=== PATIENT | female | born 1950 | race Caucasian/White ===

== ENCOUNTER 2021-01-22 09:59 | Emergency (ER) | payer MEDICARE, OTHER, SELFPAY ==
[2021-01-22] VITALS (31 sets, daily range): BP systolic 128–149; BP diastolic 55–112; PULSE 64–79; RESP 12–25; TEMP 36.7; O2SAT 93–99
--- NOTE | ~2021-01-22 | CT_ITS ---
EXAMINATION: CTA chest PE protocol DATE: 01/22/2021 11:40 INDICATION: Dizziness and weakness, elevated d-dimer TECHNIQUE: Computed tomography angiography (CTA) of the chest was performed with 100 mL Omnipaque-350 intravenous contrast timed to evaluate the pulmonary arteries. Coronal maximum intensity projection 3D-reconstructions were created by the technologist. The dose-length product (DLP) was 374.19 mGy-cm. Automated exposure control and iterative reconstruction technique were employed. COMPARISON: None. FINDINGS: The pulmonary arteries are well-opacified. No pulmonary embolism is identified. There is mo derate emphysema. Mild dependent atelectasis is noted. There is mild dependent atelectasis. The lungs are free of focal airspace opacities. There is no pleural effusion or pneumothorax. No pathologicall y enlarged thoracic lymph nodes are identified. The heart size is normal. The gallbladder is surgical ly absent. There is a 2 cm low-density mass of the left adrenal gland, consistent with an adenoma. A 1.3 cm cyst is noted in the spleen. There is an age-indeterminate compression fracture of T12. IMPRESSION: 1. No pulmonary embolism or acute cardiopulmonary abnormality. 2. Age-indeterminate T12 compression fracture. Reviewed, dictated and finalized at location A.
--- NOTE | ~2021-01-22 | XR_ITS ---
EXAMINATION: XR chest 1V portable INDICATION: Dizziness and weakness TECHNIQUE: Portable AP chest at 1014 hours COMPARISON: None available FINDINGS: The lungs are free of acute opacities. There is no pleural effusion or pneumothorax. The ca rdiomediastinal silhouette is normal. There is osteoarthritis of the shoulders. IMPRESSION: 1. No acute cardiopulmonary abnormality. Reviewed, dictated and finalized at location A.
--- NOTE | 2021-01-22 10:00 | ECG_ITS ---
Measurements Intervals [place] Rate: 65 P: 56 MO: 159 QRS: 48 QRSD: 109 T: 51 QT: 431 QTc: 451 Interpretive Statements SINUS RHYTHM BASELINE ARTIFACT- V1 NORMAL ECG Electronically Signed On 01-22-2021 21:39:09 CDT by Jaya Wilder D.O.
[2021-01-22] MEDS: SODIUM CHLORIDE 0.9% IV 1,000 ML 999 ML IV CONT (10:21)
[2021-01-22 10:56] LABS: Basophils Percent Auto 0.4 % (0.2-1.2); Eosinophils Absolute Auto 0.1 K/mm3 (0-0.3); Eosinophils Percent Auto 1.9 % (0-4.4); Hematocrit 43.3 % (37.0-47.0); Hemoglobin 13.7 g/dL (12.0-15.0); Immature Granulocyte Absolute 0.09 K/mm3 (0.00-0.031); Immature Granulocyte Percent A 1.2 % (0-0.5); Lymphocytes Absolute Auto 0.81 K/mm3 (0.9-3.2); Lymphocytes Percent Auto 11.1 % (18.3-44.2); Mean Corpuscular HGB Conc 31.6 g/dl (32-36); Mean Corpuscular Hemoglobin 29.8 pg (26-34); Mean Corpuscular Volume 94.1 fl (80-100); Mean Platelet Volume 10.1 fl (7.4-10.4); Monocytes Absolute Auto 0.5 K/mm3 (0.1-0.6); Monocytes Percent Auto 6.3 % (2.6-8.5); Neutrophils Absolute Auto 5.8 K/mm3 (1.3-6.7); Neutrophils Percent Auto 79.1 % (45.5-73.1); Platelet Count Result 188 k/mm3 (150-375); Red Cell Distribution Width 13.6 % (11.5-14.5); White Blood Count 7.3 K/mm3 (4.5-10.0)
[2021-01-22 11:10] LABS: INR 0.9
[2021-01-22 11:11] LABS: Alanine Aminotransferase 14 U/L (4-35); Albumin Level 4.7 g/dL (3.5-5.1); Alkaline Phosphatase 68 U/L (38-126); Anion Gap 8 mmol/L (8-16); Aspartate Amino Transferase 29 U/L (14-36); Bilirubin,Total 0.9 mg/dL (0.2-1.3); Blood Urea Nitrogen 13 mg/dL (7-17); Calcium 9.7 mg/dL (8.4-10.2); Carbon Dioxide 26 mmol/L (22-30); Chloride 106 mmol/L (98-107); Estimated CRCL calculation 64 ml/min; Estimated Glomerular Filt Rate > 60; Glucose 131 mg/dL (65-105); Potassium 4.2 mmol/L (3.4-5.0); Sodium 140 mmol/L (137-145)
[2021-01-22 11:13] LABS: D Dimer 0.95 ug/mL (<0.48)
[2021-01-22 11:15] LABS: Add Urine Microscopic? YES; Appearance Urine Clear (Clear); Bilirubin Urine Negative (Negative); Blood Urine Negative (Negative); Color Urine Yellow (Yellow); Glucose Urine UA Negative (Negative); Ketones Urine Trace mg/dL (Negative); Leukocyte Esterase Ur Negative LEU/UL (Negative); Mucus Urine Rare /lpf; Nitrate Urine Negative (Negative); Protein Urine Negative (Negative); RBC Urine 0-2 /hpf (0-2); Squamous Epithelial Cell Urine Rare /hpf (Few); Urobilinogen Urine Negative mg/dL (<2.0); WBC Urine 0-3 /hpf
[2021-01-22 11:22] LABS: NT Pro B Type Natriuretic Pept 135 pg/mL (5-100); Troponin I < 0.012 ng/mL (0.000-0.034)
--- NOTE | 2021-01-22 12:38 | ED.GENADULT ---
HPI - General Adult General Chief complaint: Dizziness Stated complaint: dizziness/nausea Time Seen by Provider: 01/22/21 10:06 Source: patient, EMS and RN notes reviewed Mode of arrival: EMS Limitations: no limitations History of Present Illness HPI narrative: Patient is a 70-year-old female who presents to emergency department for evaluation of dizziness that occurred while working in the [facility] patient began to feel dizzy had some blurred vision at that time went inside tried to rest symptoms persisted and then presented to emergency department for evaluation patient notes she has had similar occurrences on a few episodes since May patient on arrival to emergency department resting in the room comfortably no distress denying any recent illness notes yesterday she had felt fine Related Data Allergies Allergy/AdvReac Type Severity Reaction Status Date / Time Sulfa (Sulfonamide Allergy Mild Verified 11/03/08 14:23 Antibiotics) Review of Systems Review of Systems: All systems reviewed & are unremarkable except as noted in HPI and below PMFSH Past Medical History Medical History Hypertension Surgical History Surgical History Hx of cholecystectomy Social History Social History (Updated 01/22/21 @ 12:41 by Yogi Madera PA-C) Smoking status: Former smoker Exam Narrative: Exam Narrative: GENERAL: Well-appearing, well-nourished, and in no acute distress. HEAD: Normocephalic, atraumatic. EYES: PERRLA and EOMI. ENT: Nares clear, no rhinorrhea or epistaxis. Mucous membranes moist. Oropharynx without tonsillar hypertrophy exudate or other lesions. Bilateral TMs pearly salmon nonbulging NECK: Supple. No adenopathy or masses. No carotid bruits or JVD CHEST: Clear to auscultation. No respiratory distress. No wheezes rales or rhonchi HEART: Regular rate and rhythm. No murmur heard. Normal peripheral pulses. ABDOMEN: Soft, nontender, nondistended EXTREMITIES: Normal range of motion. No edema. SKIN: Warm, dry, no rash. NEURO: No focal deficits. Alert and oriented x3. Cranial nerves II through XII grossly intact PSYCH: Normal mood and affect. Course Course Emergency Course: Patient presented for dizziness which has been ongoing since May patient has had multiple episodes will be referred back to primary care for further evaluation of her dizziness patient at this time denies any symptoms resting comfortably in the room in no distress ABCs and vital signs intact and stable patient made aware of case findings treatment plan and diagnosis and agrees with this plan Vital Signs Vital signs: Vital Signs Temperature 98.0 F 01/22/21 09:57 Pulse Rate 69 01/22/21 09:57 Respiratory Rate 14 01/22/21 09:57 Pulse Oximetry 98 01/22/21 09:57 Temperature 98.0 F 01/22/21 09:57 Pulse Rate 69 01/22/21 11:08 Respiratory Rate 17 01/22/21 11:08 Blood Pressure 138/87 01/22/21 11:08 Pulse Oximetry 99 01/22/21 11:08 Medical Decision Making MDM Narrative Medical decision making narrative: Patient's dizziness has resolved there are o focal neurological deficits on exam. Subarachnoid hemorrhage is felt to be unlikey at this time. There is no history of fever, and neck is supple without meningismus, making meningitis unlikely. No traumatic history or signs of trauma on exam. No risk factors for CVA, risk factors reviewed. NO ocular signs on exam and in history to suggest acute glaucoma. Patients EKGs and labs are without significant high risk changes. Cardiac risk factors were reviewed. Patient is felt likely to be low risk for ACS and reasonable for further risk stratification testing as an outpatient. Pain was not sudden or maximal in onset without tearing or ripping. quality. No other signs or symptoms to suggest aortic dissection. A low-risk Wells criteria is noted. PE is fe
[2021-01-22 13:23] LABS: Troponin I < 0.012 ng/mL (0.000-0.034)
== END 2021-01-22 13:52 | disposition home or self-care (01) ==
PROVIDERS: Emergency Medicine Emergency Medical Services; Emergency Provider Emergency Medicine
DX: R42 Dizziness and giddiness (principal); I10 Essential (primary) hypertension
CPT/HCPCS: 36415; 71045; 71275; 80053; 81001; 83880; 84484; 85025; 85380; 85610; 85730; 93005; 96360; 99284; J7030; Q9967

== ENCOUNTER 2022-03-19 14:40 | Emergency (ER) | payer MEDICARE, OTHER, SELFPAY ==
[2022-03-19] VITALS (7 sets, daily range): BP systolic 117–129; BP diastolic 61–75; PULSE 82–99; RESP 18–20; TEMP 36.8; O2SAT 93–100
--- NOTE | ~2022-03-19 | XR_ITS ---
EXAMINATION: XR chest 1V portable Exam Date/Time: 03/19/2022 17:28 CDT HISTORY: Shortness of breath; cough, hx of HTN Comparison: 01/22/2021. RESULT: Lines, tubes, and devices: None. Lungs and pleura: Senescent change, otherwise clear. Cardiomediastinal silhouette: Stable. Other: No acute osseous or upper abdominal finding. IMPRESSION: No acute cardiopulmonary process. Reviewed, dictated and finalized at location K.
--- NOTE | 2022-03-19 15:34 | ED.URI ---
HPI - URI/Sore Throat General Chief Complaint: Upper Respiratory Infection Stated Complaint: oxygen levels low - URI - negative covid Time Seen by Provider: 03/19/22 15:34 Source: patient and RN notes reviewed Mode of arrival: ambulatory Limitations: no limitations History of Present Illness HPI Narrative: 71 years old white female referred to our emergency room by urgent care because of cold-like symptoms. Patient reported having sore throat 1 week ago lasted for 3 days, went to urgent care at that time and had negative COVID test and strep test. 6 days ago patient started having productive cough of clear sputum, runny nose, postnasal discharge, hoarseness of voice. Patient started on Mucinex and Robitussin-DM, gargle salt warm water, no improvement. Patient went to see urgent care again today then got referred to the emergency room for further evaluation. Related Data Allergies Allergy/AdvReac Type Severity Reaction Status Date / Time Sulfa (Sulfonamide Allergy Mild Unknown Verified 03/19/22 15:12 Antibiotics) Review of Systems Review of Systems: All systems reviewed & are unremarkable except as noted in HPI and below PMFSH Past Medical History Medical History Hypertension Surgical History Surgical History Hx of cholecystectomy Social History Social History Smoking status: Former smoker Exam Narrative: General appearance: Well-developed, well-nourished, hoarseness of voice Skin: Normal color Head: Normocephalic, nontraumatic Eyes: Clear conjunctiva ENT: Oropharynx normal, ears normal, nose normal Neck: Supple, nontender Chest and respiratory: Airway patent, no respiratory distress, no accessory muscle use few scattered wheezing and rhonchi bilaterally Heart: Regular rate/rhythm Abdomen: Soft, nontender, no organomegaly, quiet bowel sounds Vascular: Normal peripheral pulses, normal capillary refill. Musculoskeletal: Normal range of motion, nontender back Neurologic: Alert and oriented ?3, DISTRESSER is normal as tested, no gross motor deficit Course Vital Signs Vital signs: Vital Signs Temperature 36.8 C 03/19/22 14:58 Pulse Rate 88 03/19/22 14:58 Respiratory Rate 20 03/19/22 14:58 Blood Pressure 117/61 03/19/22 14:58 Pulse Oximetry 93 03/19/22 14:58 Oxygen Delivery Room Air 03/19/22 14:58 Temperature 36.8 C 03/19/22 14:58 Pulse Rate 96 03/19/22 16:00 Respiratory Rate 20 03/19/22 16:00 Blood Pressure 121/61 03/19/22 16:00 Pulse Oximetry 95 03/19/22 16:00 Oxygen Delivery Room Air 03/19/22 15:08 MDM - URI/Sore Throat Lab Data Result diagrams: 03/19/22 15:59 03/19/22 15:58 Labs: Lab Results 03/19/22 03/19/22 03/19/22 Range/Units 15:58 15:59 16:10 WBC 9.7 (4.5-10.0) K/mm3 RBC 4.18 L (4.2-5.4) M/mm3 Hgb 12.7 (12.0-15.0) g/dL Hct 38.7 (37.0-47.0) % MCV 92.6 (80-100) fl MCH 30.4 (26-34) pg MCHC 32.8 (32-36) g/dl RDW 12.8 (11.5-14.5) % Plt Count 191 (150-375) k/mm3 MPV 9.7 (7.4-10.4) fl Immature Gran % (Auto) 1.3 H (0-0.5) % Neut % (Auto) 75.2 H (45.5-73.1) % Lymph % (Auto) 10.2 L (18.3-44.2) % [place] % (Auto) 12.0 H (2.6-8.5) % Eos % (Auto) 0.8 (0-4.4) % Baso % (Auto) 0.5 (0.2-1.2) % Lymph # (Auto) 0.99 (0.9-3.2) K/mm3 [place] # (Auto) 1.2 H (0.1-0.6) K/mm3 Eos # (Auto) 0.1 (0-0.3) K/mm3 Baso # (Auto) 0.1 (0.0-0.1) K/mm3 Abs Immat Gran (auto) 0.13 H (0.00-0.031) K/mm3 Absolute Neuts (auto)
[2022-03-19 15:52] LABS: Alveolar/Arterial O2 Gradient 40.5 mmHg; Base Excess ABG 2.1 mEq/l (+/-2.0); Fractional Inspired Oxygen 21 %; HCO3 ABG 26.8 mEq/l (22.0-26.0); Oxygen Content ABG 16.1 %vol (16.0-22.0); Oxygen Saturation ABG 90.9 % (95.0-100.0); PCO2 ABG 42.3 mmHg (35.0-45.0); PO2 ABG 58.6 mmHg (80.0-100.0); PO2 FiO2 Ratio Arterial Blood 2.79 %; Total Hemoglobin 12.9 g/dL (12.0-18.0)
[2022-03-19 15:53] LABS: Device ROOM AIR; Modified Allen's Test Pass; Site Drawn RIGHT RADIAL
[2022-03-19 16:06] LABS: Basophils Absolute Auto 0.1 K/mm3 (0.0-0.1); Basophils Percent Auto 0.5 % (0.2-1.2); Eosinophils Absolute Auto 0.1 K/mm3 (0-0.3); Eosinophils Percent Auto 0.8 % (0-4.4); Hematocrit 38.7 % (37.0-47.0); Hemoglobin 12.7 g/dL (12.0-15.0); Immature Granulocyte Absolute 0.13 K/mm3 (0.00-0.031); Immature Granulocyte Percent A 1.3 % (0-0.5); Lymphocytes Absolute Auto 0.99 K/mm3 (0.9-3.2); Lymphocytes Percent Auto 10.2 % (18.3-44.2); Mean Corpuscular HGB Conc 32.8 g/dl (32-36); Mean Corpuscular Hemoglobin 30.4 pg (26-34); Mean Corpuscular Volume 92.6 fl (80-100); Mean Platelet Volume 9.7 fl (7.4-10.4); Monocytes Absolute Auto 1.2 K/mm3 (0.1-0.6); Neutrophils Absolute Auto 7.3 K/mm3 (1.3-6.7); Neutrophils Percent Auto 75.2 % (45.5-73.1); Platelet Count Result 191 k/mm3 (150-375); Red Blood Count 4.18 M/mm3 (4.2-5.4); Red Cell Distribution Width 12.8 % (11.5-14.5); White Blood Count 9.7 K/mm3 (4.5-10.0)
[2022-03-19 16:12] LABS: Alanine Aminotransferase 13 U/L (6-35); Albumin Level 4.3 g/dL (3.5-5.1); Alkaline Phosphatase 57 U/L (38-126); Anion Gap 4 mmol/L (8-16); Aspartate Amino Transferase 23 U/L (14-36); Bilirubin,Total 0.5 mg/dL (0.2-1.3); Blood Urea Nitrogen 11 mg/dL (7-17); Calcium 9.3 mg/dL (8.4-10.2); Carbon Dioxide 29 mmol/L (22-30); Chloride 100 mmol/L (98-107); Estimated CRCL calculation 56 ml/min; Estimated Glomerular Filt Rate > 60; Glucose 143 mg/dL (65-110); Potassium 3.8 mmol/L (3.4-5.0); Sodium 133 mmol/L (137-145)
[2022-03-19 17:03] LABS: Influenza A QL RT-PCR Negative (Negative); Influenza B QL RT-PCR Negative (Negative); SARS-CoV-2 RNA PCR Negative
[2022-03-19] MEDS: predniSONE 20 MG TABLET 60 MG PO (18:12)
[2022-03-19] MEDS: IPRATROPIUM BR 0.02% INH SOLN 0.5 MG/2.5 ML VIAL INHALATION (18:19)
[2022-03-19] MEDS: ALBUTEROL SULFATE NEB 2.5 MG/3 ML INH 5 MG INHALATION ×2 (18:19→18:32)
== END 2022-03-19 19:46 | disposition home or self-care (01) ==
PROVIDERS: Emergency Provider Emergency Medicine
DX: J06.9 Acute upper respiratory infection, unspecified (principal); B34.9 Viral infection, unspecified; I10 Essential (primary) hypertension; Z20.822 Contact with and (suspected) exposure to COVID-19
CPT/HCPCS: 36415; 36600; 71045; 80053; 82805; 85025; 87502; 94640; 99283; C9803; J7512; U0003; U0005

== ENCOUNTER 2022-07-20 10:02 | Outpatient (CLI) | payer MEDICARE, OTHER, SELFPAY ==
--- NOTE | 2022-07-20 13:09 | WPDPFTINT ---
PFT Procedure Performed PFT Procedure Performed Spirometry with Pre/Post Bronchodilator Plethysmography (Lung Vol) Diffusing Cap (DLCO) Flow Vol Loop PFT Interpretation Lung volumes were measured with the body plethysmography method. Lung volumes are unremarkable. Spirometry showed normal FVC, normal FEV1, borderline normal mid expiratory flow rates but mild reduction in the FEV1 to FVC ratio at 67%. Following administration of a bronchodilator there was no significant increase in expiratory flow rates. Lung diffusion capacity is moderately reduced at 59% predicted. The flow volume loop is consistent with mild obstructive airway disease. Impression: Probable mild obstructive airway disease with no response to bronchodilators on this testing.
--- NOTE | 2022-07-20 13:16 | WPDSIXMINUTE ---
Six Minute Walk Procedure Procedure Performed Pulmonary Stress Test (6 min walk) Six Minute Walk Six Minute Walk: This 6 minute walk test was carried out with the patient breathing ambient air. The pre-walk oxyhemoglobin saturation was 98%. The patient walked over 396 m with no stops during testing. During the walk, oxyhemoglobin saturation remained in the range of 92% to 98%. Impression: No evidence of oxyhemoglobin desaturation on this testing.
== END 2022-07-20 10:03 | disposition home or self-care (01) ==
LOC: ANHPFT 10:03
PROVIDERS: Visit Provider Internal Medicine Pulmonary Disease
DX: J44.9 Chronic obstructive pulmonary disease, unspecified (principal); Z87.891 Personal history of nicotine dependence; R94.2 Abnormal results of pulmonary function studies
CPT/HCPCS: 94060; 94618; 94726; 94729

== ENCOUNTER 2022-09-19 10:23 | Emergency (ER) | payer MEDICARE, OTHER, SELFPAY ==
--- NOTE | 2022-09-19 10:25 | ED.WOUNDLAC ---
HPI - Wound/Laceration General Chief Complaint: Wound/Laceration Stated Complaint: Right Hand Finger Laceration Time Seen by Provider: 09/19/22 10:25 Source: patient Mode of arrival: ambulatory Limitations: no limitations History of Present Illness HPI narrative: Octavia is a 72 year female patient presenting to the clinic today with complaints of a right hand finger laceration. She reports she cut her finger this morning when trying to clean out a can. Has a 1 cm cut to the dorsal aspect of the right 4th finger. Is able to bend her finger however when she does been her finger the wound bleeds more Related Data Home Medications Medication Instructions Recorded Confirmed amlodipine 5 mg tablet 5 mg PO DAILY 07/04/22 09/19/22 lisinopril 30 mg tablet 30 mg PO DAILY 07/04/22 09/19/22 vit 1 tablet PO DAILY 07/04/22 09/19/22 [id number] 500 mg-50 mg-25 mg-40 mg tablet (Bioflex) Allergies Allergy/AdvReac Type Severity Reaction Status Date / Time Sulfa (Sulfonamide Allergy Mild Unknown Verified 09/19/22 10:26 Antibiotics) Review of Systems Review of Systems: Pertinent positives per HPI. Patient denies any fever, chills, rash, headache, visual changes, dizziness, cough, runny nose, sore throat, shortness of breath, chest pain, palpitations, nausea, vomiting, diarrhea, constipation, abdominal pain, or any urinary issues. PMFSH Past Medical History Medical History Hypertension Surgical History Surgical History Hx of cholecystectomy Social History Social History Smoking status: Former smoker Comments At the time of my signature, I reviewed and agree with the nursing past medical, surgical, social, and family history. There is no relevant family history pertinent to the patient complaint. Exam Narrative: General: Well-developed, well nourished, in no apparent distress Head: Normocephalic, atraumatic. Cardio: Regular rate and rhythm, s1 and s2 normal, no murmur appreciated. Resp: Clear to auscultation bilaterally, no rhonchi, rales, wheezing or rubs. Integumentary: [place], warm, and dry, 1 cm mildly gaping laceration to the right 4th dorsal finger -horizontal laceration over the knuckle Course Course Emergency Course: Portions of this record may have been created with voice recognition software. Level of Care: Express Care Visit Vital Signs Vital signs: Vital signs reviewed Procedures Laceration Laceration 1: Date: 09/19/22 Site: hand (Right 4th finger) Side (If applicable): right Size (cm): 1 Description: linear Depth: simple, single layer Local Anesthetic: lidocaine 1% Amount of anesthesia used (mL): 1 Pre-repair: wound explored and irrigated ====== Skin Level ====== Skin layer closed with: nylon Size (cm): 5-0 Number of sutures: 2 Technique: simple, interrupted ====== Subcutaneous Layer ====== ====== Muscle Layer ====== ====== Tendon Layer ====== Dressing: Verbal consent obtained for laceration repair. Risk and benefits explained and patient voiced understanding. Area was cleansed with primaderm and a 25 gauge needle was then used to instill (1) ml of 1% lidocaine without epi into the wound edges. Area was prepped and draped using sterile technique. A 5-0 suture on a p needle was used to place (2) interrupted sutures bringing the wound edges together- well approximated. Patient tolerated procedure well. Sterile dressing and metal finger splint applied. MDM - Wound/Laceration MDM Narrative Medical decision making narrative: At the time of visit patient is resting comfortably on the exam table. Laceration repair was performed using 5- 0 Monocryl suture-2 interrupted sutures p
[2022-09-19 10:39] VITALS: BP 150/74; PULSE 78; RESP 16; TEMP 36.9; O2SAT 96
[2022-09-19] MEDS: TETANUS,DIPHTHERIA,AC PERTUSSIS ADULT (0.5 ML) BOOSTRIX IM (11:02)
== END 2022-09-19 11:14 | disposition home or self-care (01) ==
LOC: EXPCOLL 10:29
PROVIDERS: Emergency Provider Nurse Practitioner Family
DX: S61.214A Laceration without foreign body of right ring finger without damage to nail, initial encounter (principal); I10 Essential (primary) hypertension; Z87.891 Personal history of nicotine dependence; Z23 Encounter for immunization; W26.8XXA Contact with other sharp object(s), not elsewhere classified, initial encounter
CPT/HCPCS: 12001; 90471; 90715; 99212; G0463

== ENCOUNTER 2022-09-29 08:20 | Emergency (ER) | payer MEDICARE, OTHER, SELFPAY ==
[2022-09-29 08:30] VITALS: BP 140/70; PULSE 74; RESP 16; TEMP 36.6; O2SAT 99
--- NOTE | 2022-09-29 08:42 | ED.SKABFB ---
HPI - Skin/Abscess/Foreign Bdy General Chief complaint: Skin/Abscess/Foreign Body Stated complaint: stitches removal Time Seen by Provider: 09/29/22 08:42 Source: patient Mode of arrival: ambulatory Limitations: no limitations History of Present Illness HPI narrative: 72-year-old female presents for suture removal. Had sutures placed to right ring finger 10 days ago after cutting herself on a metal can. Patient denies concerns for infection. All systems reviewed and negative except as noted above. Related Data Home Medications Medication Instructions Recorded Confirmed amlodipine 5 mg tablet 5 mg PO DAILY 07/04/22 09/19/22 lisinopril 30 mg tablet 30 mg PO DAILY 07/04/22 09/19/22 vit 1 tablet PO DAILY 07/04/22 09/19/22 [id number] 500 mg-50 mg-25 mg-40 mg tablet (Bioflex) Allergies Allergy/AdvReac Type Severity Reaction Status Date / Time Sulfa (Sulfonamide Allergy Mild Unknown Verified 09/19/22 10:26 Antibiotics) Review of Systems Review of Systems: CONSTITUTIONAL: Denies fever, chills, or sweats. EYES: Denies visual changes, redness, or discharge. ENT: Denies rhinorrhea, congestion, sore throat, or otalgia. CARDIOVASCULAR: Denies chest pain, palpitations, or edema. RESPIRATORY: Denies cough or dyspnea. GASTROINTESTINAL: Denies abdominal pain, nausea, vomiting, or diarrhea. GENITOURINARY: Denies dysuria or hematuria. SKIN: Denies rash or itching. Here for suture removal. MUSCULOSKELETAL: Denies back pain, joint pain, or myalgia. NEUROLOGIC: Denies headache, numbness, or weakness. PSYCHIATRIC: Denies anxiety or depression. All other systems reviewed are negative, except as documented in HPI. [facility] Past Medical History Medical History Hypertension Surgical History Surgical History Hx of cholecystectomy Social History Social History Smoking status: Former smoker Comments At time of signature, agree with nursing past medical, surgical, social and family history. There is no relevant family history pertinent to the presenting complaint. Exam Narrative: GENERAL: This is a well-nourished, well-developed patient, in no apparent distress. HEAD: normocephalic, atraumatic. EYES: PERRL. Sclera clear/white. Vision is grossly intact. EARS: External ears normal NOSE: External nose normal NECK: Neck supple, non-tender without lymphadenopathy, masses or thyromegaly. CARDIOVASCULAR: Regular rate and rhythm without murmurs, gallops, or rubs. RESPIRATORY: Clear to auscultation. Breath sounds equal bilaterally. No wheezes, rales, or rhonchi. SKIN: warm, Dry, intact with no suspicious lesions or rash, good texture and turgor. Healing laceration to right ring finger with [address] No signs of infection. NEURO: awake, alert, and oriented to person, place and time. There were no obvious focal neurologic abnormalities. EXTREMITIES: No joint tenderness, effusion, or edema noted. Course Course Level of Care: Express Care Visit Vital Signs Vital signs: Vital Signs Temperature 36.6 C 09/29/22 08:30 Pulse Rate 74 09/29/22 08:30 Respiratory Rate 16 09/29/22 08:30 Blood Pressure 140/70 09/29/22 08:30 Pulse Oximetry 99 09/29/22 08:30 Oxygen Delivery Room Air 09/29/22 08:30 Temperature 36.6 C 09/29/22 08:30 Pulse Rate 74 09/29/22 08:30 Respiratory Rate 16 09/29/22 08:30 Blood Pressure 140/70 09/29/22 08:30 Pulse Oximetry 99 09/29/22 08:30 Oxygen Delivery Room Air 09/29/22 08:30 Reviewed Procedures Other Procedure Procedure 1: Other Procedure: two sutures removed from right ring finger using tweezers and scissors. MDM - Skin/Abscess/Foreign Bdy MDM Narrative Medical decision making narrative: Patient is aware of diagnosi
== END 2022-09-29 08:58 | disposition home or self-care (01) ==
PROVIDERS: Emergency Provider Nurse Practitioner Family
DX: S61.214D Laceration without foreign body of right ring finger without damage to nail, subsequent encounter (principal); W45.8XXA Other foreign body or object entering through skin, initial encounter; I10 Essential (primary) hypertension; Z87.891 Personal history of nicotine dependence
CPT/HCPCS: 99211; G0463

== ENCOUNTER 2023-09-16 08:09 | Emergency (ER) | payer MEDICARE, OTHER, SELFPAY ==
[2023-09-16 08:20] VITALS: BP 151/72; PULSE 80; RESP 20; TEMP 37; O2SAT 98
--- NOTE | 2023-09-16 08:20 | ED.URI ---
HPI - URI/Sore Throat General Chief Complaint: Upper Respiratory Infection Stated Complaint: Sinus/Cough Time Seen by Provider: 09/16/23 08:20 Source: patient Mode of arrival: ambulatory Limitations: no limitations History of Present Illness HPI Narrative: 73-year-old female with history of COPD presents today with complaint cough, chest congestion for 2 weeks. Has been taking [id number] Mucinex and Robitussin with no relief of symptoms. Afebrile. Reports shortness of breath after coughing fits but otherwise fine. Called primary care physician for appointment cannot get her in for 3 weeks. All Systems reviewed and negative except as noted above. Related Data Home Medications Medication Instructions Recorded Confirmed amlodipine 5 mg tablet 5 mg PO DAILY 07/04/22 09/16/23 lisinopril 30 mg tablet 30 mg PO DAILY 07/04/22 09/16/23 vit 1 tablet PO DAILY 07/04/22 09/16/23 [id number] 500 mg-50 mg-25 mg-40 mg tablet (Bioflex) Allergies Allergy/AdvReac Type Severity Reaction Status Date / Time Sulfa (Sulfonamide Allergy Mild Unknown Verified 09/16/23 08:23 Antibiotics) Review of Systems Review of Systems: CONSTITUTIONAL: Denies fever, chills, or sweats. EYES: Denies visual changes, redness, or discharge. ENT: reports rhinorrhea, congestion. Denies sore throat, or otalgia. CARDIOVASCULAR: Denies chest pain, palpitations, or edema. RESPIRATORY: reports cough, chest congestion dyspnea with coughing. GASTROINTESTINAL: Denies abdominal pain, nausea, vomiting, or diarrhea. GENITOURINARY: Denies dysuria or hematuria. SKIN: Denies rash or itching. MUSCULOSKELETAL: Denies back pain, joint pain, or myalgia. NEUROLOGIC: Denies headache, numbness, or weakness. PSYCHIATRIC: Denies anxiety or depression. All other systems reviewed are negative, except as documented in HPI. [facility] Past Medical History Medical History Hypertension Surgical History Surgical History Hx of cholecystectomy Social History Social History (Reviewed 09/19/22 @ 11:05 by CAMELIA Mojica Smoking status: Former smoker Comments At time of signature, agree with nursing past medical, surgical, social and family history. There is no relevant family history pertinent to the presenting complaint. Exam Narrative: GENERAL: This is a well-nourished, well-developed patient, in no apparent distress. HEAD: normocephalic, atraumatic. EYES: PERRL. Sclera clear/white. Vision is grossly intact. EARS: External ears normal, auditory canals clear and without drainage, TMs normal without perforation. Hearing grossly intact. NOSE: External nose normal with nasal drainage is nasal congestion. THROAT: Mucous membranes moist, posterior pharynx clear. NECK: Neck supple, non-tender without lymphadenopathy, masses or thyromegaly. CARDIOVASCULAR: Regular rate and rhythm without murmurs, gallops, or rubs. RESPIRATORY: mildly decreased throughout all lung freeman. Breath sounds equal bilaterally. No wheezes, rales, or rhonchi. SKIN: warm, Dry, intact with no suspicious lesions or rash, good texture and turgor. NEURO: awake, alert, and oriented to person, place and time. There were no obvious focal neurologic abnormalities. EXTREMITIES: No joint tenderness, effusion, or edema noted. Course Course Level of Care: Express Care Visit Vital Signs Vital signs: Reviewed MDM - URI/Sore Throat MDM Narrative Medical decision making narrative: Will prescribe antibiotic today precaution due to patient's history of COPD. Lung sounds mildly decreased in all lung freeman, most likely baseline for patient COPD. 98% room air. No respiratory distress noted. Patient is not toxic. Recommend follow-up with PCP in 1 week. Patient is aware of diagnosis, understands and agrees to treatment plan. Anti
== END 2023-09-16 08:40 | disposition home or self-care (01) ==
PROVIDERS: Emergency Provider Nurse Practitioner Family
DX: J44.1 Chronic obstructive pulmonary disease with (acute) exacerbation (principal); Z87.891 Personal history of nicotine dependence; I10 Essential (primary) hypertension
CPT/HCPCS: 99213; G0463

== ENCOUNTER 2024-01-18 08:04 | Emergency (ER) | payer MEDICARE, OTHER, SELFPAY ==
[2024-01-18 08:18] VITALS: BP 154/73; PULSE 70; RESP 16; TEMP 36.6; O2SAT 95
--- NOTE | 2024-01-18 08:25 | ED.SKABFB ---
HPI - Skin/Abscess/Foreign Bdy General Chief complaint: Skin/Abscess/Foreign Body Stated complaint: right index finger red Source: patient, RN notes reviewed and old records reviewed Mode of arrival: ambulatory Limitations: no limitations History of Present Illness HPI narrative: Patient presents today with complaints of pain, redness, swelling to right index finger. This has been present for 2 days. She has been taking ibuprofen with minimal relief. She has tried warm soaks. She denies any injury or trauma. The redness around the fingernail extends to the the IP joint. She does retain full range of motion. She denies any fever, chills, sweats. Denies any drainage. Related Data Home Medications Medication Instructions Recorded Confirmed amlodipine 5 mg tablet 5 mg PO DAILY 07/04/22 01/18/24 lisinopril 30 mg tablet 30 mg PO DAILY 07/04/22 01/18/24 vit 1 tablet PO DAILY 07/04/22 01/18/24 [id number] 500 mg-50 mg-25 mg-40 mg tablet (Bioflex) Allergies Allergy/AdvReac Type Severity Reaction Status Date / Time Sulfa (Sulfonamide Allergy Mild Unknown Verified 01/18/24 08:26 Antibiotics) Review of Systems Review of Systems: All systems reviewed & are unremarkable except as noted in HPI and below Constitutional: Constitutional: Reports no additional constitutional complaints ENT: Reports system reviewed and no additional complaints, except as documented Cardiovascular: Cardiovascular: Reports no additional cardiovascular complaints Respiratory: Respiratory: Reports no additional respiratory complaints Gastrointestinal: Gastrointestinal: Reports no additional gastrointestinal complaints Integumentary/Breasts: Comments: Redness, warmth, swelling to tip of right index finger PMFSH Past Medical History Medical History Hypertension Surgical History Surgical History Hx of cholecystectomy Social History Social History Smoking status: Former smoker Comments At the time of my signature, I reviewed and agree with the nursing past medical, surgical, social, and family history. There is no relevant family history pertinent to the patient complaint. Exam Const: General: cooperative, no acute distress, alert and awake Orientation/consciousness: oriented to person, oriented to place and oriented to time HENMT: Head: normal to inspection Resp: Effort & Inspection: normal respiratory effort and able to speak in complete sentences Auscultation: clear to auscultation bilaterally, no crackles, no rales, no rhonchi and no wheezes Cardio: Palpation: normal PMI Rate: regular rate Rhythm: regular rhythm Heart sounds: S1 normal heart sound present and S2 normal heart sound present Neuro: General: oriented to person, oriented to place and oriented to time Cranial nerves: Yes CN's II-XII intact bilaterally Extrem: Other: Redness, warmth, swelling to tip of right index finger extending from the nail bed to the DIP joint. There is no drainable abscess. She does retain full range of motion to the affected finger Psych: Appearance: grossly normal Thought process: Normal thought process present Insight: Good insight present (Psych) Judgement: Good judgement present (Psych) Course Course Level of Care: Express Care Visit Vital Signs Vital signs: Vital Signs Temperature 97.9 F 01/18/24 08:18 Pulse Rate 70 01/18/24 08:18 Respiratory Rate 16 01/18/24 08:18 Blood Pressure 154/73 H 01/18/24 08:18 Pulse Oximetry 95 01/18/24 08:18 Oxygen Delivery Room Air 01/18/24 08:18 Temperature 97.9 F 01/18/24 08:18 Pulse Rate 70 01/18/24 08:18 Respiratory Rate 16 01/18/24 08:18 Blood Pressure 154/73 H 01/18/24 08:18 Pulse Oximetry 95 01/18/24 08:18 Oxygen Delivery Room Air 0
== END 2024-01-18 08:39 | disposition home or self-care (01) ==
PROVIDERS: Emergency Provider Nurse Practitioner Family
DX: L03.011 Cellulitis of right finger (principal); I10 Essential (primary) hypertension; Z87.891 Personal history of nicotine dependence
CPT/HCPCS: 99213; G0463

== ENCOUNTER 2025-05-06 00:38 | Day surgery (SDC) | payer MEDICARE, OTHER, SELFPAY ==
[2025-04-28 09:41] VITALS: BMI 31.8
[2025-05-06 10:52] VITALS: BP 144/67; PULSE 74; RESP 15; TEMP 35.7; O2SAT 97; BMI 29.5
[2025-05-06] MEDS: LACTATED RINGERS 1,000 ML 150 ML IV CONT (11:06)
--- NOTE | 2025-05-06 12:22 | WPDANESEPPF ---
Anes - Initial Pre Proc Eval Procedure: Operation Date: 05/06/25 12:30 Proposed Procedures p Diagnostic Colonoscopy - Som Bustillo MD Date/Time: 05/06/25 12:22 Surgeon: Som Bustillo MD Pre Op Diagnosis: Melena Patient Data Age: 74 Gender: F Height: 1.55 m Weight: 71 kg Last Vital Signs Temp 96.3 F L 05/06/25 10:52 Pulse 74 05/06/25 10:52 Resp 15 05/06/25 10:52 BP 144/67 H 05/06/25 10:52 Pulse Ox 97 05/06/25 10:52 O2 Del Method Room Air 05/06/25 10:52 Allergies Allergy/AdvReac Type Severity Reaction Status Date / Time Sulfa (Sulfonamide Allergy Mild Unknown Verified 05/06/25 10:51 Antibiotics) Home Medications ?Medication ?Instructions ?Recorded ?Confirmed ?Type amlodipine 5 mg tablet 5 mg PO DAILY 07/04/22 05/06/25 History lisinopril 30 mg tablet 30 mg PO DAILY 07/04/22 05/06/25 History vit 1 tablet PO DAILY 07/04/22 05/06/25 History [id number] 500 mg-50 mg-25 mg-40 mg tablet (Bioflex) Patient hx anesthesia problems: none Family hx anesthesia problems: none Results Review: All pre-operative results and documents have been reviewed as part of the pre-operative evaluation. [facility] Past Medical History Medical History Hypertension Surgical History Surgical History Hx of cholecystectomy Social History Social History Smoking status: Former smoker Tobacco type: cigarettes Alcohol intake: current Alcohol use details: rarely Substance use: never Substance use type: does not use Living arrangements: alone Spiritual care concerns: No Anes - Eval Final PreProcedure Day of Procedure 05/06/25 12:22 Patient weight: normal Heart: regular rate and rhythm Lungs: clear to auscultation Airway: Mallampati scale class II Neurological: alert and oriented Last oral intake: >/= 8 hours ASA classification: III Emergent: no Anesthetic plan: proceed Anesthesia type and monitoring: general GIVS and standard monitoring Results Review: All pre-operative results and documents have been reviewed as part of the pre-operative evaluation. Informed Consent: The patient's anesthetic plan and its attendant risks and benefits were discussed with the patient/family/POA. Questions were solicited and answers provided to the satisfaction of the patient/family/POA.
--- NOTE | 2025-05-06 12:25 | PM.IMHP ---
H&P: HPI History of Present Illness Date/Time: 05/06/25 12:25 Chief Complaint: Rectal bleeding Narrative: The patient had recent episodes of minor amount rectal bleeding mixed with mucus. She is referred for colonoscopy. Review of Systems Review of Systems: All systems reviewed & are unremarkable except as noted in HPI and below PMFSH Past Medical History Medical History Hypertension Surgical History Surgical History Hx of cholecystectomy Social History Social History Smoking status: Former smoker Tobacco type: cigarettes Alcohol intake: current Alcohol use details: rarely Substance use: never Substance use type: does not use Living arrangements: alone Spiritual care concerns: No Meds Home Medications and Allergies Home Medications ?Medication ?Instructions ?Recorded ?Confirmed ?Type amlodipine 5 mg tablet 5 mg PO DAILY 07/04/22 05/06/25 History lisinopril 30 mg tablet 30 mg PO DAILY 07/04/22 05/06/25 History vit 1 tablet PO DAILY 07/04/22 05/06/25 History [id number] 500 mg-50 mg-25 mg-40 mg tablet (Bioflex) Allergies Allergy/AdvReac Type Severity Reaction Status Date / Time Sulfa (Sulfonamide Allergy Mild Unknown Verified 05/06/25 10:51 Antibiotics) Vital Signs Vital Signs - 24 hr 05/06/25 10:52 Temperature 96.3 F L Pulse Rate 74 Respiratory Rate 15 Blood Pressure 144/67 H Pulse Oximetry 97 Oxygen Delivery Room Air Exam Const: General: cooperative and healthy appearing Resp: Effort & Inspection: normal respiratory effort and able to speak in complete sentences Auscultation: clear to auscultation bilaterally Cardio: Rate: regular rate Rhythm: regular rhythm GI: Inspection: normal to inspection GI Palp: No No hepatosplenomegaly present Auscultation: normal bowel sounds Rectal Exam: deferred Skin: General skin exam: normal color Psych: Appearance: grossly normal Mental Status: mental status grossly normal Assessment and Plan Assessment and plan (1) Painless rectal bleeding: Code(s): K62.5 - Hemorrhage of anus and rectum Status: Acute Assessment and Plan: The patient is deemed a good candidate for the procedure. Consent signed. Will proceed.
[2025-05-06 12:55] VITALS: BP 158/75; PULSE 67; RESP 21; O2SAT 98
[2025-05-06 13:05] VITALS: BP 168/81; PULSE 64; RESP 26; O2SAT 97
[2025-05-06 13:15] VITALS: BP 172/80; PULSE 63; RESP 20; O2SAT 96
== END 2025-05-06 13:27 | disposition home or self-care (01) ==
PROVIDERS: Visit Provider Internal Medicine Gastroenterology
PROC: 0DJD8ZZ Inspection of Lower Intestinal Tract, Via Natural or Artificial Opening Endoscopic (ICD-10-PCS; CPT 45378; principal; 2025-05-06 12:30)
DX: K64.8 Other hemorrhoids (principal); K57.30 Diverticulosis of large intestine without perforation or abscess without bleeding; I10 Essential (primary) hypertension; Z90.49 Acquired absence of other specified parts of digestive tract; Z87.891 Personal history of nicotine dependence
CPT/HCPCS: 45378; J2003; J2704; J7120

== ENCOUNTER 2025-05-26 08:59 | Emergency (ER) | payer MEDICARE, OTHER, SELFPAY ==
[2025-05-26 09:12] VITALS: BP 131/64; PULSE 82; RESP 16; TEMP 36.6; O2SAT 95
--- NOTE | 2025-05-26 09:46 | ED.URI ---
HPI - URI/Sore Throat General Chief Complaint: Upper Respiratory Infection Stated Complaint: cough Time Seen by Provider: 05/26/25 09:46 Source: patient Mode of arrival: ambulatory Limitations: no limitations History of Present Illness HPI Narrative: 74 yo F with hx of COPD presents with c/o cough, chest congestion for 1 wk. Afebrile. Not using inhalers. States O2 85% RA during th night after coughing. Cough worse at night. Taking mucinex. States just not getting better. All systems reviewed and negative except as noted above. Related Data Home Medications ?Medication ?Instructions ?Recorded ?Confirmed ?Last Taken ?Type amlodipine 5 mg tablet 5 mg PO DAILY 07/04/22 05/06/25 05/05/25 History lisinopril 30 mg tablet 30 mg PO DAILY 07/04/22 05/06/25 05/05/25 History vit 1 tablet PO DAILY 07/04/22 05/06/25 05/05/25 History [id number] 500 mg-50 mg-25 mg-40 mg tablet (Bioflex) Allergies Allergy/AdvReac Type Severity Reaction Status Date / Time Sulfa (Sulfonamide Allergy Mild Unknown Verified 05/26/25 09:56 Antibiotics) [facility] Past Medical History Medical History Hypertension Surgical History Surgical History Hx of cholecystectomy Social History Social History Tobacco type: cigarettes Alcohol intake: current Alcohol use details: rarely Substance use: never Substance use type: does not use Living arrangements: alone Spiritual care concerns: No Comments At time of signature, agree with nursing past medical, surgical, social and family history. There is no relevant family history pertinent to the presenting complaint. Exam Narrative: GENERAL: This is a well-nourished, well-developed patient, in no apparent distress. HEAD: normocephalic, atraumatic. EYES: PERRL. Sclera clear/white. Vision is grossly intact. EARS: External ears normal, auditory canals clear and without drainage, TMs normal without perforation. Hearing grossly intact. NOSE: External nose normal with no obvious nasal discharge, nares without redness, no rhinorrhea. THROAT: Mucous membranes moist, posterior pharynx clear. NECK: Neck supple, non-tender without lymphadenopathy, masses or thyromegaly. CARDIOVASCULAR: Regular rate and rhythm without murmurs, gallops, or rubs. RESPIRATORY: Decreased throughout all lung freeman. Breath sounds equal bilaterally. No wheezes, rales, or rhonchi. SKIN: warm, Dry, intact with no suspicious lesions or rash, good texture and turgor. NEURO: awake, alert, and oriented to person, place and time. There were no obvious focal neurologic abnormalities. EXTREMITIES: No joint tenderness, effusion, or edema noted. Course Course Level of Care: Express Care Visit Vital Signs Vital signs: Vital Signs Temperature 36.6 C 05/26/25 09:12 Pulse Rate 82 05/26/25 09:12 Respiratory Rate 16 05/26/25 09:12 Blood Pressure 131/64 05/26/25 09:12 Pulse Oximetry 95 05/26/25 09:12 Oxygen Delivery Room Air 05/26/25 09:12 Temperature 36.6 C 05/26/25 09:12 Pulse Rate 82 05/26/25 09:12 Respiratory Rate 16 05/26/25 09:12 Blood Pressure 131/64 05/26/25 09:12 Pulse Oximetry 95 05/26/25 09:12 Oxygen Delivery Room Air 05/26/25 09:12 reviewed MDM - URI/Sore Throat MDM Narrative Medical decision making narrative: oxygen saturation 95% room air. Lung sounds decreased throughout all lung freeman which could be patient's baseline due to COPD. Recommend patient start using her inhaler center prescribed for her COPD. Will treat with steroids and antibiotic. Follow-up with primary care physician. Differential Diagnosis Differential diagnosis: Likely upper respiratory infection, viral infection, bronchitis and other ( Pneumonia) Discharge Plan Discharge Clinical Impression: Acute exacerbation of chronic obstructive pulmonary disease Patient Disposition: Home Condition: Stable Instructions: Antibiotic Form, Chronic Bronchitis (ED) Additional Instructions: Take medications as prescribed. Continue [id number] Mucinex as directed on packaging. Use your albuterol inhaler as prescribed. Drink at least 64 oz water a day. See your doctor if not improving. If you are having difficulty breathing or chest pain go to the ER. Patient Language: Danish Prescriptions: New doxycycline hyclate 100 mg capsule 100 mg PO BID 7 Days Qty: 14 0RF prednisone 20 mg tablet 40 mg PO DAILY 5 Days Qty: 10 0RF No Action Bioflex 269-37-08-40 mg tablet 1 tablet PO DAILY lisinopril 30 mg tablet 30 mg PO DAILY amlodipine 5 mg tablet 5 mg PO DAILY Follow-up/Referrals: MARINA DEL REY, [Primary Care Provider] Time of Disposition: 10:03
== END 2025-05-26 10:08 | disposition home or self-care (01) ==
PROVIDERS: Emergency Provider Nurse Practitioner Family
DX: J44.1 Chronic obstructive pulmonary disease with (acute) exacerbation (principal); I10 Essential (primary) hypertension; Z72.0 Tobacco use
CPT/HCPCS: 99213; G0463